=== PATIENT | female | born 1995 | race Caucasian/White ===

== ENCOUNTER 2018-04-19 14:12 | Emergency (ER) | payer MEDICAID, OTHER ==
--- NOTE | 2018-04-19 14:29 | EDPHY ---
H & P Stated Complaint: L neck swelling and pain Time Seen by Provider: 04/19/18 14:28 HPI/ROS: HPI: This is a 23-year-old female who presents with Chief Complaint: Left neck swelling and pain Location: Left neck Quality: Swelling and pain Duration: 3 days Signs and Symptoms: + low-grade fever, no nausea, no vomiting, no diarrhea, no urinary symptoms, no chest pain, no shortness of breath, no wheezing, no cough, + sore throat, no neck stiffness, no joint pain,+ swollen glands, no ear pain, no rash Timing: Worsening Severity: Moderate Context: Patient is a student at [employer] and has a history of asthma presents with 3 day history of swollen glands on the left side of her neck that have slowly increased in size accompanied by pain and sore throat. Patient reports that she had a low-grade fever yesterday of 99 F. She denies any headache, neck stiffness. She reports that it hurts to swallow. She does complain of fatigue. Denies drooling or change in speech pattern. Modifying Factors: None Comment: ROS: A comprehensive 10 system review of systems is otherwise negative aside from elements mentioned in the history of present illness. MEDICAL/SURGICAL/SOCIAL HISTORY: Medical history: Asthma Surgical history: Septoplasty Social history: Denies tobacco use. Family history noncontributory. CONSTITUTIONAL: Nontoxic-appearing young adult white female, awake and alert, no obvious distress HEENT: Atraumatic and normocephalic, PERRL, EOMI. Nares patent; no rhinorrhea; no nasal mucosal edema. Tympanic membranes clear. Oropharynx clear, tonsils mild erythema with exudate; tonsils 1+; uvula midline; halitosis and moist pink mucosa. Airway patent. Left 3 mm soft mobile cervical anterior lymphadenopathy. No meningismus. Cardiovascular: Normal S1/S2, regular rate, regular rhythm, without murmur rub or gallop. PULMONARY/CHEST: Symmetrical and nontender. Clear to auscultation bilaterally. Good air movement. No accessory muscle usage. ABDOMEN: Soft, nondistended, nontender, no rebound, no guarding, no peritoneal signs, no masses or organomegaly. No CVAT. EXTREMITIES: 2/2 pulses, strength 5/5, no deformities, no clubbing, no cyanosis or edema. NEUROLOGICAL: no focal neuro deficits. GCS 15. SKIN: Warm and dry, no erythema. no rash. Good capillary refill. Source: Patient Exam Limitations: No limitations - Personal History Current Tetanus/Diphtheria Vaccine: Yes Current Tetanus Diphtheria and Acellular Pertussis (TDAP): Yes - Medical/Surgical History Hx Asthma: Yes Hx Chronic Respiratory Disease: No Hx Diabetes: No Hx Cardiac Disease: No Hx Renal Disease: No Hx Cirrhosis: No Hx Alcoholism: No Hx HIV/AIDS: No Hx Splenectomy or Spleen Trauma: No Other PMH: asthma, septoplasty, - Social History Smoking Status: Never smoked Constitutional: Initial Vital Signs Temperature (C) 37 C 04/19/18 14:16 Heart Rate 92 04/19/18 14:16 Respiratory Rate 16 04/19/18 14:16 Blood Pressure 150/89 H 04/19/18 14:16 O2 Sat (%) 99 04/19/18 14:16 O2 Delivery Mode Room Air Allergies/Adverse Reactions: No Known Allergies Allergy (Verified 04/19/18 14:15) Home Medications: Medication Instructions Recorded Albuterol Sulfate 07/22/09 Flovent Hfa 07/22/09 Afrin 04/19/18 Amoxicillin/Clavulanate Pot 875 mg PO BID #14 tab 04/19/18 [Augmentin 875 MG TAB (*)] oxyCODONE/APAP 5/325 [Percocet 1 - 2 tab PO Q4H PRN #10 tab 04/19/18 5/325 (*)] predniSONE [predniSONE TAPER] 10 mg PO DAILY 6 Days ea 04/19/18 Medical Decision Making ED Course/Re-evaluation: Vital signs reviewed and stable upon arrival. IV access and laboratory studies ordered along with rapid strep test Patient given 1 L normal saline, IV Decadron 10 mg, IV Toradol 30 mg 1523: Labs reviewed. WBC 13 K with left shift. Rapid strep and mono negative. Modified Centor Score=4; which recommends prophylactic antibiotic treatment for strep 1. Age Range: 15-44 years 0 2. Exudate or swelling on tonsils: yes 3. Tender/swollen anterior cervical lymph nodes: yes 4. Temp greater than 30 degree C: yes 5. Cough: Absent=1 Will treat patient with Augmentin, steroids, Percocet. No signs of meningitis/tonsillar abscess This patient was seen under the supervision of my secondary supervising physician. I evaluated care for this patient independently. Discussed this patient with Dr. Matamoros who did not see the patient. Differential Diagnosis: Differential diagnosis includes but is not limited to lymphadenopathy, lymphadenitis, viral syndrome, strep pharyngitis, infectious mononucleosis, influenza. - Data Points Laboratory Results: Laboratory Results 04/19/18 14:46 04/19/18 04/19/18 04/19/18 Unknown 14:46 14:46 WBC 13.20 10^3/uL H 10^3/uL (3.80-9.50) RBC 5.07 10^6/uL 10^6/uL (4.18-5.33) Hgb 15.4 g/dL g/dL (12.6-16.3) Hct 47.1 % H % (38.0-47.0) MCV 92.9 fL fL (81.5-99.8) MCH 30.4 pg pg (27.9-34.1) MCHC 32.7 g/dL g/dL (32.4-36.7) RDW 13.5 % % (11.5-15.2) Plt Count 266 10^3/uL 10^3/uL (150-400) MPV 10.8 fL fL (8.7-11.7) Neut % (Auto) 84.7 % H % (39.3-74.2) Lymph % (Auto) 7.8 % L % (15.0-45.0) Cooper % (Auto) 5.4 % % (4.5-13.0) Eos % (Auto) 1.2 % % (0.6-7.6) Baso % (Auto) 0.5 % % (0.3-1.7) Nucleat RBC Rel Count 0.0 % % (0.0-0.2) Absolute Neuts (auto) 11.19 10^3/uL H 10^3/uL (1.70-6.50) Absolute Lymphs (auto) 1.03 10^3/uL 10^3/uL (1.00-3.00) Absolute Monos (auto) 0.71 10^3/uL 10^3/uL (0.30-0.80) Absolute Eos (auto) 0.16 10^3/uL 10^3/uL (0.03-0.40) Absolute Basos (auto) 0.06 10^3/uL 10^3/uL (0.02-0.10) Absolute Nucleated RBC 0.00 10^3/uL 10^3/uL (0-0.01) Immature Gran % 0.4 % % (0.0-1.1) Immature Gran # 0.05 10^3/uL 10^3/uL (0.00-0.10) Beta HCG, Qual NEGATIVE Monoscreen NEGATIVE (NEGATIVE) Group A Strep Screen Group A Strep DNA Pending 04/19/18 14:19 WBC RBC Hgb Hct MCV MCH MCHC RDW Plt Count MPV Neut % (Auto) Lymph % (Auto) Cooper % (Auto) Eos % (Auto) Baso % (Auto) Nucleat RBC Rel Count Absolute Neuts (auto) Absolute Lymphs (auto) Absolute Monos (auto) Absolute Eos (auto) Absolute Basos (auto) Absolute Nucleated RBC Immature Gran % Immature Gran # Beta HCG, Qual Monoscreen Group A Strep Screen NEGATIVE (NEGATIVE) Group A Strep DNA Medications Given: Discontinued Medications Dexamethasone (Decadron Injection) 10 mg IVP EDNOW ONE Stop: 04/19/18 14:38 Last Admin: 04/19/18 14:53 Dose: 10 mg Sodium Chloride (Ns) 1,000 mls @ 0 mls/hr IV EDNOW ONE; Wide Open PRN Reason: Protocol Stop: 04/19/18 14:38 Last Admin: 04/19/18 14:45 Dose: 1,000 mls Ketorolac Tromethamine (Toradol) 30 mg IVP EDNOW ONE Stop: 04/19/18 14:38 Last Admin: 04/19/18 14:45 Dose: 30 mg Departure - Departure Disposition: Home, Routine, Self-Care Clinical Impression: Cervical lymphadenitis Pharyngitis Qualifiers: Pharyngitis/tonsillitis etiology: unspecified etiology Qualified Code(s): J02.9 - Acute pharyngitis, unspecified Condition: Good Instructions: Lymphadenopathy (ED), Viral Syndrome (ED) Additional Instructions: Rest as much as possible until you are feeling better. Consume a minimum of 8-10 glasses of water or electrolyte fluid replacement drinks that include Gatorade, Powerade, Pedialyte. Eat a bland diet for the next 48 hours and then slowly advance as tolerated. Take antibiotic as directed. Do not skip a dose. Take steroid taper as directed. Establish care with primary care provider and follow up within 5-7 days. Referrals: Laya Nino MD [Medical Doctor] - As per Instructions Prescriptions: Amoxicillin/Clavulanate Pot [Augmentin 875 MG TAB (*)] 875 mg PO BID #14 tab oxyCODONE/APAP 5/325 [Percocet 5/325 (*)] 1 - 2 tab PO Q4H PRN #10 tab PRN Reason: Pain, Severe predniSONE [predniSONE TAPER] 10 mg PO DAILY 6 Days ea
[2018-04-19] MEDS ORDERED: KETOROLAC 30 MG/1 ML SDV IVP ONE (14:37)
[2018-04-19] MEDS ORDERED: DEXAMETHASONE 10 MG/ML VIAL IVP ONE (14:37)
[2018-04-19] MEDS ORDERED: NS 1,000 ML IV ONE (14:37)
[2018-04-19 15:03] LABS: PLATELET COUNT 266 10^3/uL (150-400)
[2018-04-19] MEDS ORDERED: AMOXICILLIN/CLAVULANATE POT 875/125 MG TAB PO ONE (15:27)
[2018-04-19 15:43] VITALS: BP 116/71
== END 2018-04-19 15:42 | disposition home or self-care (01) ==
DX: J02.9 Acute pharyngitis, unspecified (principal); E86.9 Volume depletion, unspecified
CPT/HCPCS: 96374; J1100; J1885